=== PATIENT | male | born 2000 ===

== ENCOUNTER 2023-04-01 22:32 | Emergency (ER) | payer BC ==
[~2023-04-01] VITALS: Ht 170.2 cm; Wt 70.5 kg
[2023-04-01] MEDS ORDERED: Ibuprofen 400 MG TAB PO ONE (23:00)
[2023-04-01] MEDS ORDERED: Acetaminophen 325 MG TAB PO ONE (23:00)
[2023-04-02 00:16] VITALS: BP 129/69; PULSE 71; TEMP 98.5
== END 2023-04-02 00:16 | disposition home or self-care (01) ==
LOC: COL.ER 22:32
DX: S00.83XA Contusion of other part of head, initial encounter (principal); W50.0XXA Accidental hit or strike by another person, initial encounter; Y93.66 Activity, soccer